=== PATIENT | female | born 1970 | race Caucasian/White ===

== ENCOUNTER 2023-02-26 07:30 | Emergency (ER) | payer OTHER ==
[2023-02-26] MEDS ORDERED: Sodium Chloride 0.9% 10 ML Syringe FLUSH PRN (07:58)
[2023-02-26] MEDS ORDERED: Aspirin 81 MG Tab.Chew PO ONE (07:58)
[2023-02-26 08:48] LABS: ESTIMATED GFR 68 mL/min (>60)
== END 2023-02-26 10:45 | disposition home or self-care (01) ==
LOC: JD.ED 07:30
DX: R07.89 Other chest pain (principal)
CPT/HCPCS: 36415; 71046; 80053; 84443; 84484; 85025; 85379; 93005; 93225; 93226; 99285; A9270; J3490; 93010; 99283